=== PATIENT | female | born 1950 | race Caucasian/White ===

== ENCOUNTER 2023-10-15 10:55 | Emergency (ER) | payer MEDICARE, SELFPAY ==
[2023-10-15 11:10] VITALS: BP 191/79; PULSE 74; RESP 18; TEMP 36.3; O2SAT 97; BMI 31.1
--- NOTE | 2023-10-15 12:08 | ED_ITS ---
HPI - General Adult General Chief complaint: Hip Injury/Pain Stated complaint: LT hip leg pain Time Seen by Provider: 10/15/23 12:04 History of Present Illness HPI narrative: 73-year-old presenting to the ER today with left hip and left leg pain off and on for about 1-2 months. History is obtained in part for the patient and in part from her daughter. It sounds like she thinks of herself is a generally healthy person. She does not see her doctor for routine checkups and probably has not seen a doctor in 5 years or so. She and her daughter also reports that she has a history of alcohol abuse. It sounds like she has a pattern of heavy alcohol use in the past. For the past few months she has been trying to cut down. She says her recent pattern would be that she might have a pt of randall once or twice a week and sometimes a few beers. She says she knows she needs to cut down because of the feel good when she drinks. She recalls that sometimes she gets dizzy and falls when she is drinking but she can not recall any specific episode of falling that would have injured her hip. She is uncertain but she is probably had a few falls over the past few months. She cannot say how many. The she has been having episodes of pain involving her left hip that radiated around to her left anterior thigh and sometimes radiate all the way down to the top of her left foot. She says when it happens the pain feels like a knife stabbing her. It happens sometimes. Does not sound like it happens every day and some days she thinks she is getting better and some days she has pretty bad. It has been like this for a couple of months. She does not really know what brings it on or what makes it better. Sometimes she also gets pain up into her back and flank, but that does not always correspond to her leg pain. Yesterday she was having trouble where she felt like she was having weakness in her left leg and trouble lifting her left foot up when she walks. She is not having any weakness in her leg today. No trouble with bowel or bladder function. No fever or chills. No weight loss. She says she has cut down dramatically on her alcohol intake for the past couple of months and now rarely drinks. She had 1 drink about a week ago. She is not doing any therapy or meetings to maintain sobriety. As far she knows she has no history of cirrhosis or liver damage from drinking. No other known medical problems. No medications. No anticoagulants. No history of cancer. No history of diabetes or immunosuppression Related Data Previous Rx's ?Medication ?Instructions ?Recorded hydrocodone 5 mg-acetaminophen 325 1 tab PO Q4-6H PRN pain #14 tabs 10/15/23 mg tablet Allergies Allergy/AdvReac Type Severity Reaction Status Date / Time No Known Drug Allergies Allergy Verified 10/15/23 11:14 Exam Const: Vital Signs, click to edit/add: Vital Signs - 24 hr 10/15/23 11:10 Temperature 97.4 F L Pulse Rate [Right Pulse Oximeter] 74 Respiratory Rate 18 Blood Pressure [Ri ght Upper Arm] 191/79 H Pulse Oximetry 97 Oxygen Delivery Me thod Room Air Course Course ED Course: Constitutional: Appears well-developed and well-nourished. Alert. Conversant. Non toxic. HENT: Head: Atraumatic. Nose: Nose normal. Mouth/Throat: Oral mucosa is clear and moist. no trismus. Pharynx normal. Tonsils symmetric. No tonsillar enlargement, erythema, or exudate. Eyes: Conjunctivae normal. EOM normal. Pupils equal, round, and reactive to light. No scleral icterus. Neck: Normal range of motion. Neck supple. No tracheal deviation present. Cardiovascular: Normal rate, regular rhythm. No gallop. No friction rub. No murmur heard. Symmetric radial artery pulses Pulmonary/Chest: Effort normal. No stridor. No respiratory distress. No wheezes. No rales. No rhonchi . No tenderness. Abdominal: Soft. Bowel sounds normal. No distension. No mass. No tenderness. No rebound. No guarding. Musculoskeletal: No thoracic or lumbar spine tenderness. No step-off. She does have a topical analgesics patch on her left posterior buttock. RUE: Normal range of motion. No tenderness. No deformity LUE: Normal range of motion. No tenderness. No deformity RLE: Normal range of motion. No edema. No tenderness. No deformity LLE: Left lateral hip tenderness. No bruising. No abrasion. She has limited flexion of her hip due to pain. She is able to lift her left leg with straight leg raise to about 30? without any radicular pain. Use quadriceps, hamstring, femoral shaft nontender. Knee: There does appear to be an old healing contusion on her anterior knee but there is no swelling, redness. Normal flexion extension of the knee. All lower leg, ankle, foot are nontender. Normal range of motion. No edema. No deformity Lymph: No inguinal adenopathy. Neurological: Alert and oriented to person, place, and time. Normal strength. CN II-VII intact. No sensory deficit. GCS eye subscore is 4. GCS verbal subscore is 5. GCS motor subscore is 6. Normal coordination Sensory: Normal light touch sensation bilaterally on the anteromedial thigh (L3), medial malleolus (L4), dorsal first web space (L5), lateral malleolus (S1). Strength: 5/5 strength hip flexors (L3) on the right and left 5/5 strength in the quadriceps (L4) on the right and left 5/5 strength in the tibialis anterior 5/5 strength in the EHL (L5) on the right and left 5/5 strength in the gastrocnemius (S1) on the right and left 5/5 strength in the hamstring on the right and left Although she reports weakness in her right leg yesterday, she is not having any weakness during my exam. DTRs: symmetric in the patella (2/4) and in the achilles tendons. Negative straight leg raise bilaterally. Skin: Skin is warm and dry. No rash noted. No pallor. Normal capillary refill. Psychiatric: Normal mood. Normal affect. Vital Signs Vital signs: Initial Vital Signs Temperature 97.4 F L 10/15/23 11:10 Temperature Source Temporal Artery Scan 10/15/23 11:10 Pulse Rate 74 10/15/23 11:10 Respiratory Rate 18 10/15/23 11:10 Blood Pressure 191/79 H 10/15/23 11:10 Blood Pressure Mean 116 H 10/15/23 11:10 Blood Pressure Position Sitting 10/15/23 11:10 Pulse Oximetry 97 10/15/23 11:10 Oxygen Delivery Method Room Air 10/15/23 11:10 Vital Signs Temperature 97.4 F L 10/15/23 11:10 Pulse Rate 74 10/15/23 11:10 Respiratory Rate 18 10/15/23 11:10 Blood Pressure 191/79 H 10/15/23 11:10 Pulse Oximetry 97 10/15/23 11:10 Oxygen Delivery Method Room Air 10/15/23 11:10 Temperature 97.4 F L 10/15/23 11:10 Pulse Rate 74 10/15/23 11:10 Respiratory Rate 18 10/15/23 11:10 Blood Pressure 191/79 H 10/15/23 11:10 Pulse Oximetry 97 10/15/23 11:10 Oxygen Delivery Method Room Air 10/15/23 11:10 Medications Administered Medications: Discontinued Medications Generic Name Dose Route Start Last Admin Trade Name Guilherme PRN Reason Stop Dose Admin Hydrocodone Bitart/Acetaminophen 1 tab 10/15/23 12:35 10/15/23 13:19 Hydrocodone-Acetamin 5-325 Mg 1 Tab PO 10/15/23 12:36 1 tab ONCE ONE Administration Medical Decision Making [facility] Narrative Medical decision making narrative: This is a very pleasant 73-year-old female presenting to the ER today with initial chief complaint of left hip pain. However history indicates that she has pain in her left hip that sometimes also affects her low back and sometimes radiates all the way down to her left foot. Knee she also has a history of several recent falls in the setting of recent alcohol abuse. 1. Alcohol use. Patient reports that she has a history of excess use but this did she has cut down on drinking and is now sober for the past week. She is not interested in any alcohol treatment therapy. She is clinically sober and labs confirmed alcohol today. No signs of active alcohol withdrawal. Laboratory workup shows minimal elevation of transaminase but otherwise normal LFTs. CT scan shows no radiographic findings to suggest cirrhosis or any clear evidence for hepatocellular carcinoma or other hepatic abnormality. He with multiple recent falls this does increase risk for orthopedic injury to her hip, pelvis, lumbar spine. 2. CT scan abdomen pelvis shows no evidence for any lumbar spine fracture or pelvic fracture or hip fracture. Exam does not reveal any evidence for any femur, knee, lower leg, or ankle fracture. 3. Differential would also include lumbar radiculopathy or sciatica. She does not had any obvious lumbar spine pathology on CT scan. She reported some left leg weakness yesterday but has no weakness with no focal deficits and normal gait today. No bowel or bladder function. He no red flags for cauda equina, spinal epidural abscess, epidural hematoma or other acute neurosurgical emergency at this time. 4. No evidence for DVT in the left leg. She has strong DP pulses and brisk capillary refill. No evidence for acute limb ischemia. Pain is much improved after Crawford administered here in the ER. She is feeling much better, smiling, ambulatory. At this point with reasonable clinical confidence I think she is safe for outpatient management. Discussed the potential that she may need MRI if symptoms are not improving within the next week or 2 (since she has already been symptomatic for 6 or 8 weeks). She will follow-up with primary care and [facility] for recheck within the next 1-2 weeks to recheck for her left leg symptoms as well as to recheck her liver function tests and arrange other primary care. Precautions for return to the ER reviewed. Prescription for Crawford provided. We discussed opiate side effects and precautions in detail with the patient and her daughter. They understand the risks and can be safe. She will continue to abstain from alcohol. Lab Data Labs: Lab Results 10/15/23 Range/Units 12:59 WBC 7.78 (4.50-11.00) K/uL RBC 4.44 (4.00-5.20) m/uL Hgb 13.3 (12.0-16.0) gm/dL Hct 40.6 (33.0-51.0) % MCV 91 (80-100) fL MCH 30 (26-34) pg MCHC 33 (32-36) gm/dL RDW Coeff of [place] 12.7 (11.5-15.5) % Plt Count 266 (140-440) K/uL Neut % (Auto) 49.6 (42.0-72.0) % Lymph % (Auto) 35.7 (20-44) % [place] % (Auto) 11.6 H (0.0-11.0) % Eos % (Auto) 2.7 (0.0-7.0) % Baso % (Auto) 0.3 (0.0-3.0) % Neut # (Auto) 3.86 (1.7-7.0) K/uL Lymph # (Auto) 2.78 (0.90-2.90) K/uL [place] # (Auto) 0.90 (0.00-0.90) K/UL Eos # (Auto) 0.21 (0.00-0.50) K/uL Baso # (Auto) 0.02 (0.00-0.30) K/uL Abs Immat Gran (auto) 0.01 (0.00-0.30) K/uL Imm/Tot Granulo (auto) 0.1 % Sodium 135 (135-149) mmol/L Potassium 3.6 (3.6-5.1) mmol/L Chloride 102 (96-114) mmol/L Carbon Dioxide 26 (20-32) mmol/L Anion Gap 7 (7-15) mEq/L BUN 11 (7-30) mg/dL Creatinine 0.6 (0.5-1.5) mg/dL Estimated Creat Clear 38.44 Estimated GFR 94 ml/min Glucose 90 (60-115) mg/dL Calcium 9.8 (8.4-10.6) mg/dL Total Bilirubin 0.7 (0.1-1.5) mg/dL AST 66 H (12-35) U/L ALT 25 (4-35) U/L Alkaline Phosphatase 87 (40-150) U/L Total Protein 7.6 (6.0-8.3) g/dL Albumin 4.8 (3.3-5.0) g/dL Ethyl Alcohol < 0.01 L (0.01-0.03) % Imaging Data CT scan - pelvis: Attestation: I have reviewed the pertinent imaging results. Radiologist's impression: FINDINGS: The study is performed without intravenous contrast. This limits the sensitivity of the exam for the detection bowel pathology, focal lesions of the abdominopelvic viscera and vascular pathology including significant vascular stenosis, occlusion and dissection. ABDOMEN Liver: Normal hepatic attenuation. No suspicious focal hepatic lesion. No intrahepatic biliary ductal dilatation. Gallbladder: Normal gallbladder size. Normal common duct caliber. No pericholecystic inflammatory changes. Pancreas: Normal pancreatic attenuation. No focal lesion. Normal duct caliber. No peripancreatic inflammatory changes. Spleen: Normal splenic attenuation. No suspicious focal lesion. Adrenal Glands: Incidental 1.5 cm right adrenal adenoma measuring -4 HU (2; 38). 1.6 cm left adrenal adenoma (2; 42) measuring -7 HU. Kidneys: Normal bilateral renal attenuation. 2.6 cm medial right lower pole renal cortical cysts. A subcentimeter round circumscribed homogeneous fat density left renal cortical lesions consistent with small angiomyolipomas (2; 52, 65). No suspicious focal lesion. No obstructing nephrolith or dilatation of the upper urinary tracts. Gastrointestinal tract: Normal caliber, attenuation and wall thickness of the gastrointestinal tract. Sigmoid diverticulosis without associated inflammatory changes. Normal mesentery. Normal appendix. Vascular: Moderate infrarenal abdominal aortic atherosclerotic mural calcification. Normal outer wall to outer wall abdominal aortic caliber. Patency and luminal caliber of the abdominopelvic arterial and venous vasculature cannot be assessed on this noncontrast study. Additional findings: No incidental adenopathy. No significant ascites, free fluid or pneumoperitoneum. PELVIS No bladder lesion is identified. No significant incidental findings related to the uterus and uterine adnexae. No abnormal free fluid. No incidental adenopathy. SKELETON AND BODY WALL No acute or suspicious incidental findings. Chronic multilevel lumbar spondylosis. Bilateral hip osteoarthrosis, more pronounced on the left compared to the right. Bilateral asymmetric, more pronounced on the right, sacroiliac osteoarthrosis. LOWER THORAX Small fat containing left Bochdalek hernia. Partially included lower thoracic wall, lungs, pleural spaces and mediastinum are otherwise without significant incidental findings. IMPRESSION: 1. No acute traumatic injury is identified. Specifically, no vertebral body fracture or fracture of the left hip or pelvis is identified to explain the patient`s symptoms. 2. Incidental findings described above. Discharge Plan Discharge Clinical Impression: Left leg pain, Left lumbar radiculopathy Patient Disposition: Home, Self-Care Condition: Stable Instructions: Lumbar Radiculopathy (ED), Leg Pain (ED) Additional Instructions: As we discussed, use caution with Crawford and other prescription pain killers because they can cause drowsiness, dizziness, lightheadedness, and can be addictive. Use ibuprofen or Crawford if needed for pain. See your doctor for recheck within 1-2 weeks. Come back to the ER right away if you have worsening or uncontrolled pain, worsening weakness or numbness in your left leg, disturbance of bladder or bowel function, fever, or any other concerning symptoms. Prescriptions: New hydrocodone-acetaminophen 5-325 mg tablet 1 tab PO Q4-6H PRN (Reason: pain) Qty: 14 0RF Follow Up/Referrals: Provider,Not a Local [Staff Physician] - Stand Alone Forms: [employer] Info Instructions
--- NOTE | 2023-10-15 12:35 | CRLHL7_ITS ---
For Patients: As a result of the 21st Century Cures Act, medical imaging exams and procedure reports are released immediately into your electronic medical record. You may view this report before your referring provider. If you have questions, please contact your health care provider. INDICATION: Fall. Low back and left hip pain. COMPARISON: None available. TECHNIQUE: CT of the abdomen and pelvis without intravenous contrast. Please note that all CT scans at this facility use dose modulation, iterative reconstruction, and/or weight-based dosing when appropriate to reduce radiation dose to as low as reasonably achievable. FINDINGS: The study is performed without intravenous contrast. This limits the sensitivity of the exam for the detection bowel pathology, focal lesions of the abdominopelvic viscera and vascular pathology including significant vascular stenosis, occlusion and dissection. ABDOMEN Liver: Normal hepatic attenuation. No suspicious focal hepatic lesion. No intrahepatic biliary ductal dilatation. Gallbladder: Normal gallbladder size. Normal common duct caliber. No pericholecystic inflammatory changes. Pancreas: Normal pancreatic attenuation. No focal lesion. Normal duct caliber. No peripancreatic inflammatory changes. Spleen: Normal splenic attenuation. No suspicious focal lesion. Adrenal Glands: Incidental 1.5 cm right adrenal adenoma measuring -4 HU (2; 38). 1.6 cm left adrenal adenoma (2; 42) measuring -7 HU. Kidneys: Normal bilateral renal attenuation. 2.6 cm medial right lower pole renal cortical cysts. A subcentimeter round circumscribed homogeneous fat density left renal cortical lesions consistent with small angiomyolipomas (2; 52, 65). No suspicious focal lesion. No obstructing nephrolith or dilatation of the upper urinary tracts. Gastrointestinal tract: Normal caliber, attenuation and wall thickness of the gastrointestinal tract. Sigmoid diverticulosis without associated inflammatory changes. Normal mesentery. Normal appendix. Vascular: Moderate infrarenal abdominal aortic atherosclerotic mural calcification. Normal outer wall to outer wall abdominal aortic caliber. Patency and luminal caliber of the abdominopelvic arterial and venous vasculature cannot be assessed on this noncontrast study. Additional findings: No incidental adenopathy. No significant ascites, free fluid or pneumoperitoneum. PELVIS No bladder lesion is identified. No significant incidental findings related to the uterus and uterine adnexae. No abnormal free fluid. No incidental adenopathy. SKELETON AND BODY WALL No acute or suspicious incidental findings. Chronic multilevel lumbar spondylosis. Bilateral hip osteoarthrosis, more pronounced on the left compared to the right. Bilateral asymmetric, more pronounced on the right, sacroiliac osteoarthrosis. LOWER THORAX Small fat containing left Bochdalek hernia. Partially included lower thoracic wall, lungs, pleural spaces and mediastinum are otherwise without significant incidental findings. IMPRESSION: 1. No acute traumatic injury is identified. Specifically, no vertebral body fracture or fracture of the left hip or pelvis is identified to explain the patient`s symptoms. 2. Incidental findings described above. Please note that all CT scans at this facility use dose modulation, iterative reconstruction, and/or weight-based dosing when appropriate to reduce radiation dose to as low as reasonably achievable. Dictated by Haim Roper MD @ 10/15/2023 1:00:09 PM (Electronically Signed)
--- OUTSIDE RECORDS SUMMARY | 2023-10-15 12:55 | XMS_ITS | Clinical Summary ---
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 Immunizations Name Administration Dates Next Due Pneumococcal Poly,23-Valent (Pneumovax) 01/16/20 14 Pneumococcal conj 13-Valent (Prevnar 13) 017 Tdap 01/15/2014 Family History Medical History Relation Name Comments Alcoholism Father Cardiomyopathy Father alcohol relat ed Diabetes Mother Alcoholism Other Good Health Sister Cancer No Family History Cancer-breast No Family History Cancer-colon No Family History Relation Name Status Comments Father Mother Other Sister Social History Tobacco Use Types Packs/Day Years Used Date Smoking Tobacco: Every Day Cigarettes Smokeless Tobacco: Never Tobacco Cessation:Counseling Given: Yes Comments:In the process of quitting, nicorette gum now Alcohol Use Standard Drinks/Week Comments No 0 (1 standard drink = 0.6 oz pur e alcohol) Used to drink, sober now PHQ-2 Answer Date Recorded PHQ-2 Score 0 06/22/2018 Sex and Gender Information Value Date Recorded Sex Assigned at Not on file Gender Identity Not on file Sexual Orientation Not on file Obstetrics History Para Term AB IAB SAB Ectopic Multiple Livin g Live Births 4 4 4 4 Date Outcome GA Total Labor Labor/2nd/3rd Weight Sex Type Anes PTL Renee A1 A5 Name Clin Term Term Term Term Last Filed Vital Signs Vital Sign Reading Time Taken Comments Blood Pressure 182/97 04/03/2019 8:36 PM MANAGER PATIENT Pulse 74 04/03/2019 8:36 PM MANAGER PATIENT Temperature 36.3 ??C (97.3 ??F) 04/03/2019 8:36 PM CS T Respiratory Rate 14 04/03/2019 8:36 PM MANAGER PATIENT Oxygen Saturation 96% 04/03/2019 8:36 PM MANAGER PATIENT Inhaled Oxygen Concentration - - Weight 85.4 kg (188 lb 4.4 oz) 04/03/2019 8:36 P M MANAGER PATIENT Height 157.5 cm (5' 2) 04/03/2019 8:36 PM MANAGER PATIENT Body Mass Index 34.44 04/03/2019 8:36 PM MANAGER PATIENT Plan of Treatment Health Maintenance Due Date Last Done Comments Hepatitis C screening for ag e 18-79 02/26/1966 Colonoscopy through age 75 02/26/1993 Lipids for age 45-75 02/26/1993 Zoster (shingles) series for age 50+ (1 of 2) 02/26/1998 DEXA/DXA scan for age 65+ 02/26/2013 Medicare Wellness for age 65+ 07/19/2017 07/18/2016 BMI (ht and wt on same day) for age 18+ 03/19/2019 03/19/2018, 07/18/2016, 06/24/2015 Depression screening for age 12+ 03/19/2019 03/19/2018, 07/18/2016, 12/29/2015, Additional history exists COVID-19 vaccine series (2022- season) 2022 Influenza for age 65+ 12/22/2023 Tetanus booster 01/16/2024 01/15/2014 Tdap Completed 01/15/2014 Pneumococcal series for age 65+ Completed 7, 01/15/2014 Care Teams Facility Maintenance Worker Relationship Specialty Start Date End Date Pcp, No . PCP - General 02/26/18
[2023-10-15 13:12] LABS: Basophils Absolute Auto 0.02 K/uL (0.00-0.30); Basophils Percent Auto 0.3 % (0.0-3.0); Eosinophils Absolute Auto 0.21 K/uL (0.00-0.50); Eosinophils Percent Auto 2.7 % (0.0-7.0); Hematocrit 40.6 % (33.0-51.0); Hemoglobin* 13.3 gm/dL (12.0-16.0); Immature Granulocytes Abs Auto 0.01 K/uL (0.00-0.30); Immature Granulocytes Pct Auto 0.1 %; Lymphocytes Absolute Auto 2.78 K/uL (0.90-2.90); Lymphocytes Percent Auto 35.7 % (20-44); Mean Corpuscular HGB Conc 33 gm/dL (32-36); Mean Corpuscular Hemoglobin 30 pg (26-34); Mean Corpuscular Volume 91 fL (80-100); Monocytes Percent Auto 11.6 % (0.0-11.0); Neutrophils Absolute Auto 3.86 K/uL (1.7-7.0); Neutrophils Percent Auto 49.6 % (42.0-72.0); Platelet Count* 266 K/uL (140-440); RDW Coefficient of Variation % 12.7 % (11.5-15.5); Red Blood Count 4.44 m/uL (4.00-5.20); White Blood Count* 7.78 K/uL (4.50-11.00)
[2023-10-15 13:13] LABS: Albumin* 4.8 g/dL (3.3-5.0); Chloride* 102 mmol/L (96-114); Potassium* 3.6 mmol/L (3.6-5.1); Sodium* 135 mmol/L (135-149)
[2023-10-15 13:15] LABS: Bilirubin Total* 0.7 mg/dL (0.1-1.5); Creatinine* 0.6 mg/dL (0.5-1.5); Est. Creatinine Clearance* 38.44; Estimated Glomerular Filt Rate 94 ml/min
[2023-10-15 13:16] LABS: Alanine Aminotransferase* 25 U/L (4-35); Alkaline Phosphatase* 87 U/L (40-150); Anion Gap 7 mEq/L (7-15); Aspartate Amino Transferase* 66 U/L (12-35); Blood Urea Nitrogen* 11 mg/dL (7-30); Calcium* 9.8 mg/dL (8.4-10.6); Carbon Dioxide* 26 mmol/L (20-32); Glucose* 90 mg/dL (60-115); Slide Review Reflex No; Total Protein* 7.6 g/dL (6.0-8.3)
[2023-10-15 13:17] LABS: Ethanol* < 0.01 % (0.01-0.03)
[2023-10-15] MEDS: HYDROCODONE-ACETAMIN 5-325 MG 1 TAB PO (13:19)
== END 2023-10-15 14:56 | disposition home or self-care (01) ==
PROVIDERS: Emergency Provider Emergency Medicine; PCP Family Medicine
DX: M54.16 Radiculopathy, lumbar region (principal)
CPT/HCPCS: 36415; 74176; 80053; 82077; 85025; 99283; 99284; A9270

== ENCOUNTER 2024-03-05 10:45 | Outpatient (RCR) | payer MEDICARE, SELFPAY | END 2024-06-24 15:34 | disposition home or self-care (01) | PROVIDERS: PCP Family Medicine; Visit Provider Student in an Organized Health Care Education/Training Program | DX: M51.16 Intervertebral disc disorders with radiculopathy, lumbar region (principal); Z51.89 Encounter for other specified aftercare | CPT/HCPCS: 97110; 97140; 97162 ==